=== PATIENT | male | born 1950 | race Caucasian/White ===

== ENCOUNTER 2019-04-06 14:06 | Emergency (ER) | payer OTHER ==
[~2019-04-06] VITALS: Ht 167.6 cm; Wt 68.0 kg
[2019-04-06] MEDS ORDERED: ONDANSETRON HCL 4MG/2ML INJ IV ONE ×2 (15:00→17:15)
[2019-04-06] MEDS ORDERED: MECLIZINE 25MG TABLET PO ONE ×2 (15:00→17:15)
[2019-04-06] MEDS ORDERED: DIAZEPAM 5 MG TABLET PO ONE (15:45)
[2019-04-06 18:50] VITALS: BP 126/72
== END 2019-04-06 19:13 | disposition home or self-care (01) ==
LOC: ER 14:06
DX: H81.399 Other peripheral vertigo, unspecified ear (principal); Z90.49 Acquired absence of other specified parts of digestive tract
CPT/HCPCS: 96374; 96375; 99284; J2405; J8597

== ENCOUNTER 2024-02-16 05:54 | Emergency (ER) | payer OTHER ==
[~2024-02-16] VITALS: Ht 167.6 cm; Wt 74.0 kg
[2024-02-16 05:58] VITALS: O2SAT 95
[2024-02-16] MEDS: OXYMETAZOLINE HCL NASAL SPRAY 15ML BOTHNSTRLS SCH (06:53)
[2024-02-16] MEDS: TRANEXAMIC ACID 1,000MG/10ML TP ONE (07:10)
[2024-02-16 08:20] VITALS: BP 118/78; PULSE 80; RESP 18; TEMP 36.94740; O2SAT 98
== END 2024-02-16 08:33 | disposition home or self-care (01) ==
LOC: ER 05:54
DX: R04.0 Epistaxis (principal); E11.9 Type 2 diabetes mellitus without complications; Z90.49 Acquired absence of other specified parts of digestive tract
CPT/HCPCS: 30901; 99283; 99284